=== PATIENT | female | born 1985 | race Caucasian/White ===

== ENCOUNTER 2019-01-27 17:27 | Emergency (ER) | payer MEDICAID ==
[~2019-01-27] VITALS: Ht 154.9 cm; Wt 67.1 kg
[2019-01-27 17:37] VITALS: Ht 154.9 cm; Wt 67.1 kg
[2019-01-27 20:43] VITALS: BP 115/78
== END 2019-01-27 20:43 | disposition home or self-care (01) ==
LOC: ED 17:27
DX: T81.40XA Infection following a procedure, unspecified, initial encounter (principal); J45.909 Unspecified asthma, uncomplicated; Z90.49 Acquired absence of other specified parts of digestive tract
CPT/HCPCS: J0696; J1885